=== PATIENT | female | born 1970 | race Caucasian/White ===

== ENCOUNTER 2019-01-30 01:12 | Emergency (ER) | payer SELFPAY ==
[~2019-01-30] VITALS: Ht 154.9 cm; Wt 53.1 kg
--- NOTE | 2019-01-30 01:31 | NUR ---
PT BIB FRIEND TO ER WITH C/O OF RIGHT ANKLE PAIN 12/28. PATIENT WAS WATERING HER GARDEN WHEN SHE TRIPPED OVER A BRICK AND SPRAINED HER ANKLE 01/29/2019 1500. AAOX4. MINIMAL SWELLING NOTED, PEDAL PULSES STRONG AND EQUAL. NO LACERATION NOTED. CONNECTED TO MONITOR.
--- NOTE | 2019-01-30 01:31 | NUR ---
Note undone in EDM - 01/30/19 at 0153 by DAINA PT BIB TO ER WITH C/O OF RIGHT ANKLE PAIN 12/28. PATIENT WAS WATERING HER GARDEN WHEN SHE TRIPPED OVER A BRICK AND SPRAINED HER ANKLE 01/29/2019 1500. AAOX4. MINIMAL SWELLING NOTED, PEDAL PULSES STRONG AND EQUAL. NO LACERATION NOTED. CONNECTED TO MONITOR.
--- NOTE | 2019-01-30 01:38 | NUR ---
EVALUATED BY DR. CARR
--- NOTE | 2019-01-30 02:03 | NUR ---
EMT AT BEDSIDE PROVIDING PATIENT WITH ANKLE IMMOBILIZER AND CRUTCHES.
--- NOTE | 2019-01-30 02:10 | NUR ---
Patient discharged to home in stable condition. Written and verbal after care instructions given. Patient verbalizes understanding of instruction.
[2019-01-30 02:56] VITALS: BP 117/68
== END 2019-01-30 02:13 | disposition home or self-care (01) ==
LOC: ER 01:14
DX: S93.491A Sprain of other ligament of right ankle, initial encounter (principal); W01.0XXA Fall on same level from slipping, tripping and stumbling without subsequent striking against object, initial encounter; Y93.89 Activity, other specified; Y92.89 Other specified places as the place of occurrence of the external cause; Y99.8 Other external cause status
CPT/HCPCS: 73610-TC